=== PATIENT | male | born 1960 | race Caucasian/White ===

== ENCOUNTER 2022-10-26 16:49 | Emergency (ER) | payer OTHER, SELFPAY ==
[2022-10-26 17:26] VITALS: BP 151/77; PULSE 80; RESP 18; TEMP 36.9; O2SAT 96; BMI 29.7
--- NOTE | 2022-10-26 19:36 | ED.ANIMALBIT ---
HPI - Animal Bite General Chief Complaint: Animal Bite Stated Complaint: Bitten by a bat on R pinky finger Time Seen by Provider: 10/26/22 19:25 History of Present Illness HPI narrative: Pt is a 61 year old gentleman who presents one day after being bit by a bat on the tip of the 5th digit right hand. Pt caught a bat [place] [employer] with [place] garbage can. Unfortunately, the bat was able to bite him as he was removing it from the garbage can. Pt suffered 2 small puncture wounds. Pt was able to stop the bleeding. No signs of infection. Bat escaped. Pt has no similar history of bites and has not been previously vaccinated for rabies. Pt feels well with no symptoms. Related Data Patient tetanus UTD: Yes Home Medications Medication Instructions Recorded Confirmed simvastatin 20 mg tablet mg 10/26/22 Previous Rx's Medication Instructions Recorded meloxicam 15 mg tablet 15 mg PO QDAY #90 tabs 06/09/22 Allergies Allergy/AdvReac Type Severity Reaction Status Date / Time Sulfa (Sulfonamide Allergy Verified 10/26/22 17:25 Antibiotics) Review of Systems Status of ROS: Reports: 6 or more systems reviewed and unremarkable except as noted in History and below [facility] Medical History (Updated 10/26/22 @ 19:43 by Dc Puente MD) Osteoarthritis of left ankle Exam Narrative: Exam Narrative: EXAM GENERAL: Patient appears comfortable and well. EYES: No scleral icterus. ENT: Tympanic membranes and oropharynx normal. THYROID: no thyroid nodules or thyromegaly. LYMPH: No supraclavicular or cervical lymphadenopathy. SKIN: Two small puncture wounds noted on the tip of the 5th right upper extremity digit. Healing. EXT: No dependent lower extremity pedal edema. HEART: Regular rate and rhythm with no murmurs, rubs, or gallops. LUNGS: Clear to auscultation bilaterally with no crackles or wheezes. ABD: Soft, non tender, non distended. PSYCH: Good eye contact, speech is not pressured. Const: Vital Signs, click to edit/add: Vital Signs - 24 hr 10/26/22 17:26 Temperature 98.5 F Pulse Rate [Right Pulse Oximeter] 80 Respiratory Rate 18 Blood Pressure [Ri ght Upper Arm] 151/77 H Pulse Oximetry 96 Oxygen Delivery Me thod Room Air Course Course Hospital Course: Pt seen and examined. Vital Signs Vital signs: Initial Vital Signs Temperature 98.5 F 10/26/22 17:26 Temperature Source Temporal Artery Scan 10/26/22 17:26 Pulse Rate 80 10/26/22 17:26 Respiratory Rate 18 10/26/22 17:26 Blood Pressure 151/77 H 10/26/22 17:26 Blood Pressure Mean 101 10/26/22 17:26 Blood Pressure Position Sitting 10/26/22 17:26 Pulse Oximetry 96 10/26/22 17:26 Oxygen Delivery Method 10/26/22 17:26 Vital Signs Temperature 98.5 F 10/26/22 17:26 Pulse Rate 80 10/26/22 17:26 Respiratory Rate 18 10/26/22 17:26 Blood Pressure 151/77 H 10/26/22 17:26 Pulse Oximetry 96 10/26/22 17:26 Oxygen Delivery Method 10/26/22 17:26 Temperature 98.5 F 10/26/22 17:26 Pulse Rate 80 10/26/22 17:26 Respiratory Rate 18 10/26/22 17:26 Blood Pressure 151/77 H 10/26/22 17:26 Pulse Oximetry 96 10/26/22 17:26 Oxygen Delivery Method 10/26/22 17:26 MDM - Animal Bite MDM Narrative Medical decision making narrative: Asymptomatic pt presents one day after a bat bite. Wound clean. Started on vaccination and given Immunoglobulin. Differential Diagnosis Differential diagnosis: Likely bite by animal and rabies contact Discharge Plan Discharge Clinical Impression: Bite by animal Patient Disposition: Home, Self-Care Condition: Stable Additional Instructions: Return for futher vaccinations on day 3, 7 and 14. Activity Level: No Restrictions Discharge Diet: Regular Prescriptions: No Action simvastatin 20 mg tablet meloxicam 15 mg tablet 15 mg PO QDAY Qty: 90 3RF Follow Up/Referrals: Rip Edwards MD [Referring] - Stand Alone Forms: [facility] Info Instructions
[2022-10-26 20:00] VITALS: BP 145/78; PULSE 74; RESP 18; TEMP 36.9; O2SAT 96
[2022-10-26] MEDS: RABIES IMMUNE GLOBULIN 150 UNIT/ML INJ 2040 UNIT INFILTRATI (20:22)
[2022-10-26 20:39] VITALS: BP 151/77; PULSE 80; RESP 18; TEMP 36.9
== END 2022-10-26 20:39 | disposition home or self-care (01) ==
PROVIDERS: Emergency Provider Internal Medicine; PCP Surgery
DX: S61.259A Open bite of unspecified finger without damage to nail, initial encounter (principal); Z20.3 Contact with and (suspected) exposure to rabies
CPT/HCPCS: 90377; 90471; 90675; 99283

== ENCOUNTER → 2022-11-09 16:36 | Outpatient (RCR) | payer OTHER, SELFPAY ==
[2022-10-29 04:56] VITALS: BP 153/95; PULSE 70; RESP 18; TEMP 36.6; O2SAT 97
[2022-10-29 04:57] VITALS: BP 153/95; PULSE 70; RESP 18; TEMP 36.6; O2SAT 97
[2022-10-29 05:01] VITALS: BP 153/95; PULSE 70; RESP 18; TEMP 36.6; O2SAT 97
[2022-10-29 05:03] VITALS: BP 153/95; PULSE 70; RESP 18; TEMP 36.6; O2SAT 97
[2022-11-02 04:50] VITALS: BP 154/84; PULSE 71; RESP 16; TEMP 36.1; O2SAT 98
[2022-11-02 05:57] VITALS: BP 154/84; PULSE 71; RESP 16; TEMP 36.1; O2SAT 98
[2022-11-09 16:51] VITALS: BP 173/95; PULSE 86; RESP 18; TEMP 36.5; O2SAT 95
[2022-11-09 17:04] VITALS: BP 173/95; PULSE 86; RESP 18; TEMP 36.5; O2SAT 95
== END | disposition home or self-care (01) ==
LOC: EDOUT 10-29 04:46
PROVIDERS: PCP Surgery; Visit Provider Internal Medicine
DX: T63 Toxic effect of contact with venomous animals and plants (principal)
CPT/HCPCS: 80307; 90471; 90675